=== PATIENT | female | born 1985 | race African-American/Black ===

== ENCOUNTER 2016-12-30 22:37 | Emergency (ER) | payer OTHER ==
[~2016-12-30] VITALS: Ht 157.5 cm; Wt 65.7 kg
[~2016-12-30 22:37] MED LIST: CIPRO500 MG PO; DOXYCYCLINE HY100 MG PO; FIORICET,ESG1 TABLET PO; FLEXERIL10 MG PO; INDOCIN25 MG PO; LORTAB 5-325 M1 EACH PO; MOBIC7.5 MG PO; MOTRIN600 MG PO; NORCO 5/3251 TABLET PO; PERCOCET 5/31 TABLET PO; ULTRAM50 MG PO; VENTOLIN HFA18 GM IH; ZANTAC150 MG PO; ZOFRAN ODT4 MG PO; ZOFRAN8 MG PO
[2016-12-30 23:23] LABS: ADD MIUA? YES; BILIRUBIN MODERATE; BLOOD LARGE; GLUCOSE (STRIP) NEGATIVE; KETONES 15; LEUKOCYTES SMALL; NITRITE NEGATIVE; PH, URINE 5.5 (5-8); PROTEIN (STRIP) 100; SPECIFIC GRAVITY 1.028 (1.000-1.030)
[2016-12-30 23:23] LABS: HEMATOCRIT 34.7 % (36.0-46.0); MCH 25.7 PG (29.0-34.0); MCHC 33.7 G/DL (30.0-36.0); MCV 76.3 FL (83-99); MEAN PLAT.VOLUME 9.8 uM^3 (9.5-12.4); PLATELET COUNT 310 K/uL (156-360); RBC DIS.WIDTH-CV 15.1 % (11.8-14.6); RBC DIS.WIDTH-SD 40.5 % (39-53); RED BLOOD COUNT 4.55 M/uL (3.80-5.20); WHITE BLOOD COUNT 9.1 K/uL (4.1-10.2)
[2016-12-30 23:24] LABS: COLOR RED ((YELLOW))
[2016-12-30 23:31] LABS: CHLORIDE 104 mEq/L (99-109); POTASSIUM 3.7 mEq/L (3.7-5.4); SODIUM 140 mEq/L (136-147)
[2016-12-30 23:33] LABS: GLUCOSE 91 mg/dL (70-99)
[2016-12-30 23:35] LABS: ANION GAP 12 MEQ/L (2-14); TOTAL BILIRUBIN 1.4 mg/dL (0.0-1.0)
[2016-12-30 23:37] LABS: ALKALINE PHOSPHATASE 61 IU/L (3-129); GFR ESTIMATE (CALCULATED) > 59 mL/min/
[2016-12-30 23:38] LABS: UREA NITROGEN (BUN) 9 mg/dL (9-23)
[2016-12-30 23:42] LABS: RED BLOOD CELLS TNTC /HPF (0-5); UCUL ADDED? YES
[2016-12-30 23:47] LABS: QUANTITATIVE HCG < 4.0 MIU/ML
[2016-12-31 00:14] LABS: ICTOTEST NEGATIVE
[2016-12-31] MEDS ORDERED: BENTYL10 MG PO (02:17)
[2016-12-31] MEDS ORDERED: NAPROXEN500 MG PO (02:29)
[2016-12-31 02:54] VITALS: BP 112/70
== END 2016-12-31 03:30 | disposition home or self-care (01) ==
LOC: EME 22:37
DX: R10.31 Right lower quadrant pain (principal); N93.8 Other specified abnormal uterine and vaginal bleeding; F17.200 Nicotine dependence, unspecified, uncomplicated; J45.909 Unspecified asthma, uncomplicated
CPT/HCPCS: 76856; 80053; 81003; 84702; 85027; 87086; 87210; 99281; 99285; J1885

== ENCOUNTER 2017-02-01 09:24 | Emergency (ER) | payer OTHER ==
[~2017-02-01] VITALS: Ht 157.5 cm; Wt 65.1 kg
[~2017-02-01 09:24] MED LIST changes: +BENTYL10 MG PO; +NAPROXEN500 MG PO
[2017-02-01] MEDS ORDERED: SPRINTEC1 EACH PO (09:39)
[2017-02-01] MEDS ORDERED: HYDROCODON-ACE1 EAC7 PO (09:55)
[2017-02-01] MEDS ORDERED: CIPRODEX OTIC7.5 ML RIGHT EAR (10:50)
[2017-02-01 11:06] VITALS: BP 124/85
== END 2017-02-01 11:04 | disposition home or self-care (01) ==
LOC: EME 09:24
DX: S09.21XA Traumatic rupture of right ear drum, initial encounter (principal); J02.0 Streptococcal pharyngitis; J30.9 Allergic rhinitis, unspecified; W51.XXXA Accidental striking against or bumped into by another person, initial encounter; F17.210 Nicotine dependence, cigarettes, uncomplicated
CPT/HCPCS: 87651 90; 99281; 99284; J0561; J1885

== ENCOUNTER 2017-02-16 01:57 | Emergency (ER) | payer OTHER ==
[~2017-02-16] VITALS: Ht 157.5 cm; Wt 64.5 kg
[~2017-02-16 01:57] MED LIST changes: +CIPRODEX OTIC7.5 ML RIGHT EAR; +HYDROCODON-ACE1 EAC7 PO; +SPRINTEC1 EACH PO
[2017-02-16 02:18] VITALS: BP 134/60
== END 2017-02-16 03:30 | disposition left against medical advice (07) ==
LOC: EME 01:57
DX: Z04.8 Encounter for examination and observation for other specified reasons (principal); Z53.21 Procedure and treatment not carried out due to patient leaving prior to being seen by health care provider

== ENCOUNTER 2017-08-16 10:29 | Emergency (ER) | payer OTHER ==
[~2017-08-16] VITALS: Ht 157.5 cm; Wt 64.5 kg
[2017-08-16 10:40] VITALS: BP 118/84
[2017-08-17] MEDS ORDERED: ULTRAM50 MG PO (11:36)
[2017-08-17] MEDS ORDERED: PEN-VEE K,VEET500 MG PO (11:36)
== END 2017-08-16 11:23 | disposition left against medical advice (07) ==
LOC: EME 10:29
DX: K08.89 Other specified disorders of teeth and supporting structures (principal); Z53.21 Procedure and treatment not carried out due to patient leaving prior to being seen by health care provider

== ENCOUNTER 2017-08-17 09:55 | Emergency (ER) | payer OTHER ==
[~2017-08-17] VITALS: Ht 157.5 cm; Wt 62.3 kg
[2017-08-17] MEDS ORDERED: PEN-VEE K,VEET500 MG PO (11:36)
[2017-08-17] MEDS ORDERED: ULTRAM50 MG PO (11:36)
[2017-08-17 11:44] VITALS: BP 103/77
== END 2017-08-17 11:53 | disposition home or self-care (01) ==
LOC: EME 09:55
PROC: 3E0T3BZ Introduction of Anesthetic Agent into Peripheral Nerves and Plexi, Percutaneous Approach (ICD-10-PCS; principal; 2017-08-17)
DX: K08.89 Other specified disorders of teeth and supporting structures (principal); K02.9 Dental caries, unspecified; F17.200 Nicotine dependence, unspecified, uncomplicated
CPT/HCPCS: 99281; 99284

== ENCOUNTER 2018-05-25 17:24 | Emergency (ER) | payer OTHER ==
[~2018-05-25] VITALS: Ht 157.5 cm; Wt 66.0 kg
[~2018-05-25 17:24] MED LIST changes: +PEN-VEE K,VEET500 MG PO
[2018-05-25 18:52] LABS: SOURCE SWAB
[2018-05-25 19:24] LABS: APPEARANCE CLEAR ((CLEAR)); BILIRUBIN NEGATIVE; BLOOD SMALL; COLOR YELLOW ((YELLOW)); GLUCOSE (STRIP) NEGATIVE; KETONES 20; LEUKOCYTES LARGE; NITRITE NEGATIVE; PROTEIN (STRIP) NEGATIVE; UROBILINOGEN 0.2 MG/DL (0.2-1.0)
[2018-05-25 19:39] LABS: BACTERIA NONE SEEN /HPF; EPITHELIAL CELLS RARE /HPF; MUCUS NONE SEEN /LPF; RED BLOOD CELLS 0-5 /HPF (0-5); WHITE BLOOD CELLS 15-20 /HPF (0-5)
[2018-05-25] MEDS ORDERED: MACROBID100 MG PO (19:57)
[2018-05-25 22:44] LABS: CANDIDA DNA PROBE NEGATIVE; GARDNERELLA DNA PROBE POSITIVE; TRICHOMONAS DNA PROBE NEGATIVE
[2018-05-26 11:22] VITALS: BP 118/70
== END 2018-05-26 11:31 | disposition home or self-care (01) ==
LOC: EME 17:24
PROVIDERS: Physician Assistant
DX: N39.0 Urinary tract infection, site not specified (principal); F16.929 Hallucinogen use, unspecified with intoxication, unspecified; F10.99 Alcohol use, unspecified with unspecified alcohol-induced disorder; N89.8 Other specified noninflammatory disorders of vagina; Z11.3 Encounter for screening for infections with a predominantly sexual mode of transmission; Z79.3 Long term (current) use of hormonal contraceptives; F17.200 Nicotine dependence, unspecified, uncomplicated
CPT/HCPCS: 81003; 87210; 87480; 87491; 87510; 87591; 87660; 99281; 99285; Q0177